=== PATIENT | male | born 1965 | race Caucasian/White ===

== ENCOUNTER 2022-09-06 05:01 | Inpatient (IN) | payer OTHER ==
[~2022-09-06] VITALS: Ht 180.3 cm; Wt 112.5 kg
[2022-09-06 05:13] VITALS: BP_SYST 202
[2022-09-06] MEDS ORDERED: NITROGLYCERIN 0.4 MG TAB.SUBL SL ONE ×2 (05:30→07:15)
[2022-09-06] MEDS ORDERED: ASPIRIN 325 MG TABLET PO ONE (05:30)
[2022-09-06 05:49] LABS: BASOPHILS # (AUTO) 0.1 K/uL (0.0-0.2); BASOPHILS % (AUTO) 1.5 % (0.0-2.0); EOSINOPHILS # (AUTO) 0.7 K/uL (0.0-0.4); EOSINOPHILS % (AUTO) 9.8 % (0.0-4.0); HEMATOCRIT 47.3 % (36-54); HEMOGLOBIN 15.7 g/dL (14.0-18.0); MEAN CORPUSCULAR HEMOGLOBIN 30 pg (27-31); MEAN CORPUSCULAR HGB CONC 33 % (32-36); MEAN CORPUSCULAR VOLUME 91 fL (79.0-98.0); MONOCYTES # (AUTO) 0.7 K/uL (0.0-1.0); MONOCYTES % (AUTO) 8.8 % (1.7-9.3); NEUTROPHILS % (AUTO) 52.9 % (40.0-70.0); PLATELET COUNT (AUTO) 265 K/uL (130-430); RED BLOOD CELL COUNT(AUTO) 5.18 MIL/uL (4.2-6.2); RED CELL DISTRIBUTION WIDTH 13.5 % (9.0-15.0); WHITE BLOOD COUNT (AUTO) 7.5 K/uL (4.8-10.8)
[2022-09-06] MEDS ORDERED: fentaNYL CITRATE/PF 100 MCG/2 ML AMP IVP ONE (06:00)
[2022-09-06 06:28] LABS: ANION GAP 10 (5-15); CALCIUM 8.6 mg/dL (8.4-11.0); CHLORIDE 106 mmol/L (98-107); GFR AFRICAN AMERICAN 80 mL/min (>90); GLUCOSE 138 mg/dL (70-99); UREA NITROGEN, BLOOD 16 mg/dL (8-21)
[2022-09-06 06:42] LABS: ALANINE AMINOTRANSFERASE 29 U/L (12-78); ALBUMIN 3.5 g/dL (3.4-4.8); ASPARTATE AMINOTRANSFERASE 16 U/L (10-37); FREE T4 (FREE THYROXINE) 1.1 ng/dL (0.6-1.6); THYROID STIMULATING HORMONE 3.07 uIu/mL (0.34-4.82); TOTAL BILIRUBIN 0.6 mg/dL (0.0-1.0)
[2022-09-06] MEDS ORDERED: KETOROLAC TROMETHAMINE 30 MG VIAL IVP ONE (07:00)
[2022-09-06] MEDS ORDERED: NITROGLYCERIN 1 INCH (GM) OINT. TP ONE (07:00)
[2022-09-06] MEDS ORDERED: ASPIRIN 81 MG TAB.CHEW PO ONE (07:15)
[2022-09-06] MEDS ORDERED: LOSARTAN POTASSIUM 50 MG TABLET (COZAAR) PO SCH (09:00)
[2022-09-06] MEDS ORDERED: LOSA100T23 PO (09:00)
[2022-09-06] MEDS ORDERED: METO50TA7 PO (09:00)
[2022-09-06 10:12] VITALS: BP_SYST 140
[2022-09-06 10:59] VITALS: BP_SYST 140
[2022-09-06 16:19] VITALS: BP_SYST 159
[2022-09-06] MEDS ORDERED: LOSARTAN POTASSIUM 50 MG TABLET (COZAAR) PO ONE (18:15)
[2022-09-06 19:10] LABS: CHOLESTEROL 185 mg/dL (<200); HDL CHOLESTEROL 46 mg/dL (>45); TRIGLYCERIDES 107 mg/dL (30-150)
[2022-09-06 20:00] VITALS: BP_SYST 130
[2022-09-06] MEDS ORDERED: ENOXAPARIN SODIUM 40 MG/0.4 ML SYRINGE SUBCUT SCH (21:00)
[2022-09-06] MEDS ORDERED: METOPROLOL SUCCINATE 50 MG TAB.SR.24H (TOPROL XL) PO SCH (21:00)
[2022-09-06] MEDS ORDERED: NITROGLYCERIN 0.4 MG TAB.SUBL SL PRN (23:45)
[2022-09-07 01:27] VITALS: BP_SYST 154
[2022-09-07 05:29] LABS: BASOPHILS # (AUTO) 0.1 K/uL (0.0-0.2); BASOPHILS % (AUTO) 1.2 % (0.0-2.0); EOSINOPHILS # (AUTO) 0.7 K/uL (0.0-0.4); EOSINOPHILS % (AUTO) 8.8 % (0.0-4.0); HEMATOCRIT 42.1 % (36-54); LYMPHOCYTES # (AUTO) 2.5 K/uL (1.0-5.5); LYMPHOCYTES % (AUTO) 31.4 % (20.5-51.5); MEAN CORPUSCULAR HEMOGLOBIN 30 pg (27-31); MEAN CORPUSCULAR HGB CONC 33 % (32-36); MEAN CORPUSCULAR VOLUME 92 fL (79.0-98.0); MONOCYTES # (AUTO) 0.8 K/uL (0.0-1.0); MONOCYTES % (AUTO) 10.2 % (1.7-9.3); NEUTROPHILS # (AUTO) 3.9 K/uL (1.8-7.7); NEUTROPHILS % (AUTO) 48.4 % (40.0-70.0); PLATELET COUNT (AUTO) 237 K/uL (130-430); RED BLOOD CELL COUNT(AUTO) 4.59 MIL/uL (4.2-6.2); RED CELL DISTRIBUTION WIDTH 13.4 % (9.0-15.0)
[2022-09-07 06:31] LABS: CALCIUM 8.3 mg/dL (8.4-11.0); CREATININE 1.17 mg/dL (0.55-1.30); THYROID STIMULATING HORMONE 2.02 uIu/mL (0.34-4.82); TOTAL BILIRUBIN 0.4 mg/dL (0.0-1.0)
[2022-09-07 07:40] VITALS: BP_SYST 156
[2022-09-07] MEDS ORDERED: LOSARTAN POTASSIUM 50 MG TABLET (COZAAR) PO SCH ×2 (09:00)
[2022-09-07 12:04] VITALS: BP_SYST 159
[2022-09-07 12:07] LABS: BILIRUBIN,URINE NEGATIVE (NEGATIVE); BLOOD, URINE NEGATIVE (NEGATIVE); CLARITY/URINE CLEAR (CLEAR); COLOR,URINE YELLOW (YELLOW); GLUCOSE,URINE NEGATIVE (NEGATIVE); KETONES,URINE NEGATIVE (NEGATIVE); LEUKOCYTE ESTERASE ,URINE NEGATIVE (NEGATIVE); NITRITE, URINE NEGATIVE (NEGATIVE); PH,URINE 6.5 (5.0-8.0); PROTEIN URINE NEGATIVE (NEGATIVE); UROBILINOGEN,URINE 0.2 (0.2-1.0)
[2022-09-07 12:34] LABS: BARBITURATE, URINE NEGATIVE (NEG <=200); BENZODIAZEPINE, URINE NEGATIVE (NEG <=150); CANNABINOID, URINE NEGATIVE (NEG <=50); COCAINE, URINE NEGATIVE (NEG <=150); METHAMPHETAMINES SCREEN,URINE NEGATIVE (NEG <=500); OPIATE, URINE NEGATIVE (NEG <=100); PHENCYCLIDINE SCREEN,URINE NEGATIVE (NEG <=25); UR TRICYCLIC ANTIDEPRESSANTS NEGATIVE (NEG <=300); URINE AMPHETAMINE NEGATIVE (NEG <=500); URINE METHADONE NEGATIVE (NEG <=200); URINE OXYCODONE SCREEN NEGATIVE (NEG <=100); URINE PROPOXYPHENE SCREEN NEGATIVE (NEG <=300)
[2022-09-07 15:06] VITALS: BP_SYST 159
== END 2022-09-07 16:48 | disposition short-term general hospital (02) | DRG 313 ==
LOC: SED 05:01 → STU 07:07
PROVIDERS: ADMIT Family Medicine; ATTEND Family Medicine
DX: R07.9 Chest pain, unspecified (principal); I10 Essential (primary) hypertension; E66.9 Obesity, unspecified; E78.5 Hyperlipidemia, unspecified; Z20.822 Contact with and (suspected) exposure to COVID-19; Z88.8 Allergy status to other drugs, medicaments and biological substances; Z91.041 Radiographic dye allergy status; Z68.34 Body mass index [BMI] 34.0-34.9, adult; Z79.01 Long term (current) use of anticoagulants; Z86.718 Personal history of other venous thrombosis and embolism; Z87.81 Personal history of (healed) traumatic fracture; Z79.899 Other long term (current) drug therapy
CPT/HCPCS: 36415; 71045; 80053; 80061; 80307; 81003; 83735; 83880; 84439; 84443; 84484; 85025; 85379; 93005; 93306; G0378; J1650; J1885; J3010

== ENCOUNTER 2022-09-27 09:14 | Inpatient (IN) | payer OTHER ==
[~2022-09-27] VITALS: Ht 175.3 cm; Wt 112.5 kg
[~2022-09-27 09:14] MED LIST: LOSA100T23 PO; METO50TA7 PO
[2022-09-27 09:32] VITALS: BP_SYST 139
[2022-09-27 10:04] LABS: BASOPHILS # (AUTO) 0.1 K/uL (0.0-0.2); BASOPHILS % (AUTO) 1.2 % (0.0-2.0); EOSINOPHILS # (AUTO) 0.5 K/uL (0.0-0.4); EOSINOPHILS % (AUTO) 7.2 % (0.0-4.0); HEMATOCRIT 43.9 % (36-54); HEMOGLOBIN 14.8 g/dL (14.0-18.0); LYMPHOCYTES # (AUTO) 1.3 K/uL (1.0-5.5); LYMPHOCYTES % (AUTO) 19.2 % (20.5-51.5); MEAN CORPUSCULAR HEMOGLOBIN 31 pg (27-31); MEAN CORPUSCULAR HGB CONC 34 % (32-36); MEAN CORPUSCULAR VOLUME 92 fL (79.0-98.0); MONOCYTES # (AUTO) 0.5 K/uL (0.0-1.0); MONOCYTES % (AUTO) 6.9 % (1.7-9.3); NEUTROPHILS # (AUTO) 4.6 K/uL (1.8-7.7); NEUTROPHILS % (AUTO) 65.5 % (40.0-70.0); PLATELET COUNT (AUTO) 278 K/uL (130-430); RED CELL DISTRIBUTION WIDTH 13.3 % (9.0-15.0)
[2022-09-27 10:26] LABS: ANION GAP 10 (5-15); CALCIUM 8.8 mg/dL (8.4-11.0); CHLORIDE 106 mmol/L (98-107); CREATININE 1.37 mg/dL (0.55-1.30); GFR AFRICAN AMERICAN 68 mL/min (>90); GLUCOSE 151 mg/dL (70-99); UREA NITROGEN, BLOOD 22 mg/dL (8-21)
[2022-09-27 10:28] LABS: PROTHROMBIN TIME 10.5 SECS (9.5-12.5)
[2022-09-27 10:31] LABS: ALANINE AMINOTRANSFERASE 31 U/L (12-78); ALBUMIN 3.5 g/dL (3.4-4.8); ASPARTATE AMINOTRANSFERASE 16 U/L (10-37); TOTAL BILIRUBIN 0.5 mg/dL (0.0-1.0)
[2022-09-27] MEDS ORDERED: METO50TA7 PO (11:14)
[2022-09-27] MEDS ORDERED: TICA90TA PO (11:14)
[2022-09-27] MEDS ORDERED: ASPI-1155 PO (11:14)
[2022-09-27] MEDS ORDERED: NOR10 PO (11:14)
[2022-09-27] MEDS ORDERED: LOSA100T4 PO (11:14)
[2022-09-27] MEDS ORDERED: LIP80 PO (11:14)
[2022-09-27 14:25] VITALS: BP_SYST 136
[2022-09-27 15:00] VITALS: BP_SYST 136
[2022-09-27 16:00] VITALS: BP_SYST 146
[2022-09-27 20:00] VITALS: BP_SYST 137
[2022-09-27] MEDS ORDERED: ATORVASTATIN 20 MG TABLET PO SCH (21:00)
[2022-09-28 00:24] VITALS: BP_SYST 134
[2022-09-28] MEDS ORDERED: NACL 0.9% 1,000 ML IV SCH (00:45)
[2022-09-28] MEDS ORDERED: LORazepam 2 MG/ML VIAL IVP PRN (00:45)
[2022-09-28] MEDS ORDERED: MORPHINE 4 MG INJ. 4 MG/ML VIAL IVP PRN (00:45)
[2022-09-28] MEDS ORDERED: MORPHINE 2 MG/ML INJ. SYRINGE IVP PRN (00:45)
[2022-09-28] MEDS ORDERED: POTASSIUM CHLORIDE 40 MEQ, LIDOCAINE JECT 2% PF 100 MG 50 MG in NS 250 ML IV PRN (00:45)
[2022-09-28] MEDS ORDERED: ONDANSETRON HCL 4 MG/2 ML VIAL IVP PRN (00:45)
[2022-09-28] MEDS ORDERED: MAGNESIUM SULFATE 50 ML IV PRN (00:45)
[2022-09-28] MEDS ORDERED: NALOXONE HCL 0.4 MG/ML AMP (NARCAN) IVP PRN (00:45)
[2022-09-28 05:39] LABS: BILIRUBIN,URINE NEGATIVE (NEGATIVE); BLOOD, URINE NEGATIVE (NEGATIVE); CLARITY/URINE CLEAR (CLEAR); COLOR,URINE YELLOW (YELLOW); GLUCOSE,URINE NEGATIVE (NEGATIVE); KETONES,URINE NEGATIVE (NEGATIVE); LEUKOCYTE ESTERASE ,URINE NEGATIVE (NEGATIVE); NITRITE, URINE NEGATIVE (NEGATIVE); PROTEIN URINE NEGATIVE (NEGATIVE); UROBILINOGEN,URINE 0.2 (0.2-1.0)
[2022-09-28 05:48] LABS: BARBITURATE, URINE NEGATIVE (NEG <=200); BENZODIAZEPINE, URINE NEGATIVE (NEG <=150); CANNABINOID, URINE NEGATIVE (NEG <=50); COCAINE, URINE NEGATIVE (NEG <=150); METHAMPHETAMINES SCREEN,URINE NEGATIVE (NEG <=500); OPIATE, URINE NEGATIVE (NEG <=100); PHENCYCLIDINE SCREEN,URINE NEGATIVE (NEG <=25); UR TRICYCLIC ANTIDEPRESSANTS NEGATIVE (NEG <=300); URINE AMPHETAMINE NEGATIVE (NEG <=500); URINE METHADONE NEGATIVE (NEG <=200); URINE OXYCODONE SCREEN NEGATIVE (NEG <=100); URINE PROPOXYPHENE SCREEN NEGATIVE (NEG <=300)
[2022-09-28 05:51] LABS: BASOPHILS # (AUTO) 0.1 K/uL (0.0-0.2); BASOPHILS % (AUTO) 1.2 % (0.0-2.0); EOSINOPHILS # (AUTO) 0.6 K/uL (0.0-0.4); EOSINOPHILS % (AUTO) 9.2 % (0.0-4.0); HEMATOCRIT 43.9 % (36-54); LYMPHOCYTES # (AUTO) 1.5 K/uL (1.0-5.5); LYMPHOCYTES % (AUTO) 21.9 % (20.5-51.5); MEAN CORPUSCULAR HEMOGLOBIN 31 pg (27-31); MEAN CORPUSCULAR HGB CONC 34 % (32-36); MEAN CORPUSCULAR VOLUME 91 fL (79.0-98.0); MONOCYTES # (AUTO) 0.6 K/uL (0.0-1.0); MONOCYTES % (AUTO) 9.6 % (1.7-9.3); NEUTROPHILS # (AUTO) 3.9 K/uL (1.8-7.7); NEUTROPHILS % (AUTO) 58.1 % (40.0-70.0); PLATELET COUNT (AUTO) 256 K/uL (130-430); RED BLOOD CELL COUNT(AUTO) 4.83 MIL/uL (4.2-6.2); RED CELL DISTRIBUTION WIDTH 13.2 % (9.0-15.0); WHITE BLOOD COUNT (AUTO) 6.7 K/uL (4.8-10.8)
[2022-09-28 06:38] LABS: ALBUMIN 3.3 g/dL (3.4-4.8); CALCIUM 8.7 mg/dL (8.4-11.0); CREATININE 1.41 mg/dL (0.55-1.30); FREE T4 (FREE THYROXINE) 1.1 ng/dL (0.6-1.6); THYROID STIMULATING HORMONE 1.72 uIu/mL (0.34-4.82); TOTAL BILIRUBIN 0.7 mg/dL (0.0-1.0)
[2022-09-28 08:00] VITALS: BP_SYST 117
[2022-09-28] MEDS ORDERED: amLODIPine BESYLATE 10 MG TABLET PO SCH (09:00)
[2022-09-28] MEDS ORDERED: LOSARTAN POTASSIUM 50 MG TABLET (COZAAR) PO SCH (09:00)
[2022-09-28] MEDS ORDERED: NON-FORMULARY MEDICATION (Losartan Potassium (Cozaar) 100 MG) PO SCH (09:00)
[2022-09-28] MEDS ORDERED: ASPIRIN 81 MG TAB.CHEW PO SCH (09:00)
[2022-09-28] MEDS ORDERED: METOPROLOL SUCCINATE 50 MG TAB.SR.24H (TOPROL XL) PO SCH (09:00)
[2022-09-28 12:00] VITALS: BP_SYST 122
[2022-09-28 13:35] VITALS: BP_SYST 117
== END 2022-09-28 13:57 | disposition home or self-care (01) | DRG 377 ==
LOC: SED 09:14 → SMU 12:44
DX: K92.2 Gastrointestinal hemorrhage, unspecified (principal); I21.4 Non-ST elevation (NSTEMI) myocardial infarction; N17.0 Acute kidney failure with tubular necrosis; E66.9 Obesity, unspecified; E78.5 Hyperlipidemia, unspecified; I10 Essential (primary) hypertension; K62.1 Rectal polyp; I51.7 Cardiomegaly; I25.10 Atherosclerotic heart disease of native coronary artery without angina pectoris; Z79.899 Other long term (current) drug therapy; Z95.5 Presence of coronary angioplasty implant and graft; Z79.82 Long term (current) use of aspirin; Z91.041 Radiographic dye allergy status; Z91.013 Allergy to seafood; Z56.0 Unemployment, unspecified; Z68.36 Body mass index [BMI] 36.0-36.9, adult
CPT/HCPCS: 36415; 71045; 80053; 80307; 81003; 82272; 83037; 83690; 83735; 83880; 84439; 84443; 84484; 85025; 85610-TC; 85730-TC; 87081; 93005; 99285

== ENCOUNTER 2022-10-15 08:45 | Emergency (ER) | payer OTHER ==
[~2022-10-15] VITALS: Ht 180.3 cm; Wt 110.2 kg
[~2022-10-15 08:45] MED LIST changes: +ASPI-1155 PO; +LIP80 PO; +LOSA100T4 PO; +NOR10 PO
--- NOTE | 2022-10-15 09:00 | NUR ---
PT TRIAGED AND BROUGHT IN TO CHAIRWAY 1, ENDORED TO MARILYN SIMON. PT BIB S/O FOR C/O RIGHT FOOT SWELLING SINCE MONDAY, PT DENIES RECENT INJURY.
--- NOTE | 2022-10-15 09:00 | NUR ---
PT BIB AWAKE AND ALERT AOX4, NO SOB OR DISTRESS. PT C/O R FOOT PAIN SINCE MONDAY. PT DENIES TRAUMA. PT STATES PAIN 11/19. PT DENIES N/V. PT HAS HX OF HTN, CHF W STENT, AND NE.
--- NOTE | 2022-10-15 09:01 | NUR ---
MD DR SALGADO AT BEDSIDE
[2022-10-15 09:15] VITALS: BP_SYST 133
--- NOTE | 2022-10-15 09:15 | NUR ---
FOOT X RAY AT BEDSIDE
[2022-10-15 09:37] LABS: BASOPHILS # (AUTO) 0.1 K/uL (0.0-0.2); EOSINOPHILS # (AUTO) 0.3 K/uL (0.0-0.4); EOSINOPHILS % (AUTO) 4.1 % (0.0-4.0); HEMATOCRIT 42.9 % (36-54); HEMOGLOBIN 14.4 g/dL (14.0-18.0); LYMPHOCYTES # (AUTO) 1.4 K/uL (1.0-5.5); LYMPHOCYTES % (AUTO) 16.9 % (20.5-51.5); MEAN CORPUSCULAR HEMOGLOBIN 31 pg (27-31); MEAN CORPUSCULAR HGB CONC 34 % (32-36); MEAN CORPUSCULAR VOLUME 91 fL (79.0-98.0); MONOCYTES # (AUTO) 0.7 K/uL (0.0-1.0); MONOCYTES % (AUTO) 8.4 % (1.7-9.3); NEUTROPHILS # (AUTO) 5.9 K/uL (1.8-7.7); NEUTROPHILS % (AUTO) 69.6 % (40.0-70.0); PLATELET COUNT (AUTO) 261 K/uL (130-430); RED CELL DISTRIBUTION WIDTH 13.5 % (9.0-15.0); WHITE BLOOD COUNT (AUTO) 8.4 K/uL (4.8-10.8)
[2022-10-15 09:54] LABS: CALCIUM 8.5 mg/dL (8.4-11.0); CREATININE 1.43 mg/dL (0.55-1.30)
[2022-10-15 09:59] LABS: ALBUMIN 3.3 g/dL (3.4-4.8); C-REACTIVE PROTEIN QUANT 5.4 mg/dL (0-0.5); TOTAL BILIRUBIN 0.6 mg/dL (0.0-1.0)
[2022-10-15 10:04] LABS: PROTHROMBIN TIME 10.7 SECS (9.5-12.5)
--- NOTE | 2022-10-15 10:21 | NUR ---
US AT BEDSIDE
[2022-10-15] MEDS ORDERED: CLIN-22 PO (10:36)
[2022-10-15 11:28] VITALS: BP_SYST 135
--- NOTE | 2022-10-15 11:34 | NUR ---
Patient given written and verbal discharge instructions and verbalizes understanding. ER MD DR SALGADO discussed with patient the results and treatment provided. Patient in stable condition. ID arm band removed. Rx of CLINDAMYCIN given. Patient educated on pain management and to follow up with PMD. Pain Scale 6/10. Opportunity for questions provided and answered. Medication side effect fact sheet provided.
== END 2022-10-15 09:00 | disposition home or self-care (01) ==
LOC: SED 08:45
DX: L03.115 Cellulitis of right lower limb (principal); Z91.013 Allergy to seafood; Z91.014 Allergy to mammalian meats; Z79.899 Other long term (current) drug therapy
CPT/HCPCS: 36415; 80053; 83605; 83880; 85025; 85610-TC; 85730-TC; 86140; 93971; 99284

== ENCOUNTER 2022-12-23 14:22 | Emergency (ER) | payer OTHER ==
[~2022-12-23] VITALS: Ht 180.3 cm; Wt 112.5 kg
[~2022-12-23 14:22] MED LIST changes: +CLIN-22 PO
[2022-12-23 14:26] VITALS: BP_SYST 160; PULSE 81; RESP 28; TEMP 100.5; O2SAT 100
--- NOTE | 2022-12-23 14:30 | NUR ---
Patient to ER bed 4 for evaluation. Patient escorted to bedside by student nurses. Report given to WADE Salgado charge, Wade Medrano and Dr. Perez.
--- NOTE | 2022-12-23 14:40 | NUR ---
SEEN AND EXAMINED BY MD NAOMI.
--- NOTE | 2022-12-23 14:45 | NUR ---
BIB PRIVATE AUTO DUE TO LEFT LOWER ABDOMINAL PAIN STARTED APPROX 1000H, DENIES NAUSEA AND VOMITING. RATES PAIN AT 9/10. PAIN RADIATES ON LEFT GROIN. PT AMBULATORY, A/OX4. ATTACHED TO MONITOR, WILL CONTINUE TO MONITOR PT. INSTRUCTED TO GIVEN URINE SAMPLE MIDSTREAM.
[2022-12-23 15:00] LABS: BILIRUBIN,URINE NEGATIVE (NEGATIVE); BLOOD, URINE 3+ (NEGATIVE); COLOR,URINE YELLOW (YELLOW); GLUCOSE,URINE NEGATIVE (NEGATIVE); KETONES,URINE TRACE (NEGATIVE); LEUKOCYTE ESTERASE ,URINE NEGATIVE (NEGATIVE); NITRITE, URINE NEGATIVE (NEGATIVE); PH,URINE 5.5 (5.0-8.0); PROTEIN URINE 1+ (NEGATIVE)
[2022-12-23] MEDS ORDERED: KETOROLAC TROMETHAMINE 60 MG/2 ML VIAL IM ONE (15:00)
[2022-12-23 15:04] LABS: BASOPHILS # (AUTO) 0.1 K/uL (0.0-0.2); BASOPHILS % (AUTO) 0.8 % (0.0-2.0); EOSINOPHILS # (AUTO) 0.2 K/uL (0.0-0.4); HEMATOCRIT 42.4 % (36-54); HEMOGLOBIN 14.2 g/dL (14.0-18.0); LYMPHOCYTES % (AUTO) 10.6 % (20.5-51.5); MEAN CORPUSCULAR HEMOGLOBIN 30 pg (27-31); MEAN CORPUSCULAR HGB CONC 33 % (32-36); MEAN CORPUSCULAR VOLUME 91 fL (79.0-98.0); MONOCYTES # (AUTO) 0.7 K/uL (0.0-1.0); MONOCYTES % (AUTO) 6.9 % (1.7-9.3); NEUTROPHILS # (AUTO) 7.8 K/uL (1.8-7.7); NEUTROPHILS % (AUTO) 79.7 % (40.0-70.0); PLATELET COUNT (AUTO) 274 K/uL (130-430); RED BLOOD CELL COUNT(AUTO) 4.68 MIL/uL (4.2-6.2); RED CELL DISTRIBUTION WIDTH 13.5 % (9.0-15.0); WHITE BLOOD COUNT (AUTO) 9.7 K/uL (4.8-10.8)
[2022-12-23 15:08] LABS: CLARITY/URINE HAZY (CLEAR)
[2022-12-23 15:09] LABS: BACTERIA,URINE RARE /HPF (None Seen); MUCUS,URINE 1+ /LPF (None Seen); RBC,URINE 20-50 /HPF (0-3); WBC,URINE 0-3 /HPF (0-3)
[2022-12-23 15:14] LABS: ACETONE, SERUM NEGATIVE (NEGATIVE); ANION GAP 12 (5-15); CALCIUM 8.8 mg/dL (8.4-11.0); CHLORIDE 105 mmol/L (98-107); CREATININE 1.52 mg/dL (0.55-1.30); GFR AFRICAN AMERICAN 61 mL/min (>90); GLUCOSE 127 mg/dL (74-106); UREA NITROGEN, BLOOD 27 mg/dL (8-21)
[2022-12-23 15:17] LABS: PROTHROMBIN TIME 10.8 SECS (9.5-12.5)
[2022-12-23 15:20] VITALS: TEMP 98.2
[2022-12-23 15:28] LABS: ALANINE AMINOTRANSFERASE 23 U/L (12-78); ALBUMIN 3.8 g/dL (3.4-4.8); AMYLASE 36 U/L (0-100); ASPARTATE AMINOTRANSFERASE 17 U/L (10-37); LIPASE 47 U/L (73-393); TOTAL BILIRUBIN 0.5 mg/dL (0.0-1.0)
[2022-12-23] MEDS ORDERED: IBUP-1971 PO (16:59)
[2022-12-23] MEDS ORDERED: TRAM50TA2 PO (16:59)
[2022-12-23 17:26] VITALS: BP_SYST 155; PULSE 95; RESP 21; O2SAT 97
--- NOTE | 2022-12-23 17:26 | NUR ---
Patient given written and verbal discharge instructions and verbalizes understanding. LEEANN SALGADO MD discussed with patient the results and treatment provided. Patient in stable condition. ID arm band removed. Rx of given. Patient educated on pain management and to follow up with PMD. Pain Scale . Opportunity for questions provided and answered. Medication side effect fact sheet provided.
== END 2022-12-23 17:26 | disposition home or self-care (01) ==
LOC: SED 14:22
DX: N23 Unspecified renal colic (principal); R11.0 Nausea; I10 Essential (primary) hypertension; Z91.013 Allergy to seafood; Z91.041 Radiographic dye allergy status; Z79.899 Other long term (current) drug therapy
CPT/HCPCS: 99285; 74176; 80053; 81000; 82009; 82150; 83690; 85025; 85610; 85730; 36415; 76376; 96372; 83605; 82397; J1885

== ENCOUNTER 2023-01-09 09:10 | Outpatient (CLI) | payer OTHER ==
[~2023-01-09 09:10] MED LIST changes: +IBUP-1971 PO; +TRAM50TA2 PO
== END 2023-01-09 20:49 | disposition home or self-care (01) ==
LOC: SMI 09:10
DX: M84.374A Stress fracture, right foot, initial encounter for fracture (principal); M25.474 Effusion, right foot; M19.071 Primary osteoarthritis, right ankle and foot; M71.371 Other bursal cyst, right ankle and foot; X58.XXXA Exposure to other specified factors, initial encounter; Y93.89 Activity, other specified; Y92.89 Other specified places as the place of occurrence of the external cause; Y99.8 Other external cause status
CPT/HCPCS: 73720; 73721

== ENCOUNTER 2023-05-04 22:07 | Emergency (ER) | payer SELFPAY ==
[~2023-05-04] VITALS: Ht 180.3 cm; Wt 111.1 kg
[~2023-05-04 22:07] MED LIST changes: +LOSA-415 PO; -LOSA100T23 PO; +LOSA100T24 PO; -LOSA100T4 PO
[2023-05-04 22:28] VITALS: BP_SYST 157; PULSE 86; RESP 18; TEMP 98.4; O2SAT 95
[2023-05-04] MEDS ORDERED: NACL 0.9% 1,000 ML IV ONE (23:00)
[2023-05-04] MEDS ORDERED: METOCLOPRAMIDE HCL 10 MG/2 ML VIAL IVP ONE (23:45)
[2023-05-04] MEDS ORDERED: GLUCAGON,HUMAN RECOMBINANT 1 MG VIAL IVP ONE (23:45)
[2023-05-05 01:19] VITALS: BP_SYST 151; PULSE 77; RESP 17; TEMP 98.1; O2SAT 95
== END 2023-05-05 01:19 | disposition home or self-care (01) ==
LOC: SED 22:07
DX: T18.9XXA Foreign body of alimentary tract, part unspecified, initial encounter (principal); R09.89 Other specified symptoms and signs involving the circulatory and respiratory systems; R11.10 Vomiting, unspecified; I10 Essential (primary) hypertension; Z91.041 Radiographic dye allergy status; Z91.013 Allergy to seafood; Z79.899 Other long term (current) drug therapy; W44.F3XA Food entering into or through a natural orifice, initial encounter; Y93.89 Activity, other specified; Y92.89 Other specified places as the place of occurrence of the external cause; Y99.8 Other external cause status
CPT/HCPCS: 99284; 96374; 71045; 96375; 70360; 74018; J1610; J2765